=== PATIENT | female | born 1980 | race Caucasian/White ===

== ENCOUNTER 2017-03-26 08:06 | Inpatient (IN) | payer BC ==
[2017-03-26] VITALS (44 sets, daily range): BP systolic 107–152; BP diastolic 57–99; PULSE 54–97; RESP 17–18; TEMP 97.9–98.7
[~2017-03-26] VITALS: Ht 175.3 cm; Wt 78.0 kg
[2017-03-26] MEDS ORDERED: LACTATED RINGER'S 1000 ML INJ 1,000 ML IV PRN (08:17)
[2017-03-26] MEDS ORDERED: LACTATED RINGER'S 1000 ML INJ 1,000 ML IV SCH (08:17)
[2017-03-26] MEDS ORDERED: LIDOCAINE HCL 1% 50 ML VIAL I-DERMAL PRN (08:30)
[2017-03-26] MEDS ORDERED: MINERAL OIL 10 ML VIAL TOPICAL PRN (08:30)
[2017-03-26] MEDS ORDERED: OXYTOCIN 30 UNITS-500ML PREMIX 500 ML IV ONE (08:30)
[2017-03-26] MEDS ORDERED: OXYTOCIN 30 UNITS-500ML PREMIX 500 ML IV SCH ×2 (08:30→18:15)
[2017-03-26] MEDS ORDERED: LIDOCAINE HCL 1% 50 ML VIAL INFIL PRN (08:30)
[2017-03-26] MEDS ORDERED: SODIUM CHLORID 0.9% 500 ML INJ 500 ML IV PRN (08:30)
[2017-03-26] MEDS ORDERED: CITRIC ACID-SODIUM CITRATE LIQ 30 ML UDC PO SCH (08:30)
[2017-03-26] MEDS ORDERED: SODIUM CHLOR 0.9% 1000 ML INJ 1,000 ML IV PRN (08:37)
[2017-03-26 09:25] LABS: AUTOMATED NEUTROPHIL # 6.2 TH/MM3 (1.8-7.7); BASOPHIL % 0.2 % (0.0-2.0); EOSINOPHIL # 0.1 TH/MM3 (0-0.4); EOSINOPHIL % 1.3 % (0.0-4.0); HEMATOCRIT 37.7 % (35.0-46.0); HEMOGLOBIN 13.1 GM/DL (11.6-15.3); LYMPHOCYTE # 1.7 TH/MM3 (1.0-4.8); MEAN CELL VOLUME 92.7 FL (80.0-100.0); MEAN CORPUSCULAR HEMOGLOBIN 32.1 PG (27.0-34.0); MEAN CORPUSCULAR HGB CONC 34.6 % (32.0-36.0); MEAN PLATELET VOLUME 9.9 FL (7.0-11.0); MONO % 9.4 % (0.0-8.0); MONOCYTE # 0.8 TH/MM3 (0-0.9); NEUT % 70.1 % (16.0-70.0); PLATELET COUNT 171 TH/MM3 (150-450); RED BLOOD COUNT 4.06 MIL/MM3 (4.00-5.30); RED CELL DISTRIBUTION WIDTH 13.4 % (11.6-17.2); WHITE BLOOD COUNT 8.9 TH/MM3 (4.0-11.0)
[2017-03-26 10:21] LABS: BACTERIA, URINE OCC /hpf; BILIRUBIN, URINE NEG (NEG); BLOOD, URINE NEG (NEG); GLUCOSE,URINE NEG (NEG); KETONE, URINE NEG (NEG); MUCUS URINE FEW /lpf (OCC); NITRITE,URINE NEG (NEG); PH, URINE 6.5 (5.0-8.5); SQUAMOUS EPITHELIAL CELL URINE 2 /hpf (0-5); URINE COLOR LIGHT-YELLOW (YELLW/STRAW); URINE LEUKOCYTE ESTERASE TRACE (NEG)
[2017-03-26] MEDS ORDERED: fentaNYL 2MCG-BUPIV 0.125% INJ 100 ML ONE (10:25)
[2017-03-26] MEDS ORDERED: ePHEDrine/NS 25 MG/5 ML SYRINGE ONE (10:25)
[2017-03-26] MEDS ORDERED: fentaNYL 2MCG-BUPIV 0.125% 100 ML EPIDURAL SCH (11:25)
[2017-03-26] MEDS ORDERED: DO NOT ADMINISTER ANTICOAGULANTS PRN (11:25)
[2017-03-26] MEDS ORDERED: NO SYSTEM NARCOTICS PRN (11:25)
[2017-03-26] MEDS ORDERED: MEASLES, MUMPS, RUBELLA VACCINE 0.5 ML VIAL SQ ONE (16:00)
[2017-03-26] MEDS ORDERED: DIPHTH/TETANUS/ACEL PERTUSSIS (BOOSTER) 0.5 ML VIAL/PFS IM ONE (16:00)
[2017-03-26] MEDS ORDERED: ONDANSETRON HCL 4 MG/2 ML VIAL ONE (16:49)
--- NOTE | 2017-03-26 18:10 | PD.OB.DELI ---
Weeks gestation: 39 Gest age assessed date: Mar 26, 2017 Gest age assessed time: 09:00 Pt started active labor?: Yes Active labor start date: Mar 26, 2017 Active labor start time: 09:00 Medical induction of labor?: No Artificial rupture of membrane: Yes Anesthesia: Epidural Episiotomy: None Vaginal Delivery: Normal, Spontaneous, Presentation: Occiput anterior Nuchal Cord: None Delayed cord clamping (45 sec): Yes Infant: Female, Single Delivery date: Mar 26, 2017 Delivery time: 17:39 One Minute : 9 Five Minute : 9 Weight: 7# 10 oz Placenta: Spontaneous delivery, Intact, 3 vessel cord Laceration: Perineal laceration, 2 deg Repair: Chromic running Estimated blood loss: 300 Angus Geronimo MD Mar 26, 2017 18:10
[2017-03-26] MEDS ORDERED: oxyCODONE/ACETAMINOPHEN 5 MG/325 MG TAB PO PRN ×2 (18:15)
[2017-03-26] MEDS ORDERED: ALUMINUM/MAGNESIUM/SIMETH 30 ML CUP PO PRN (18:15)
[2017-03-26] MEDS ORDERED: SODIUM CHLORIDE 0.9% FLUSH 10 ML FLUSH IV FLUSH PRN (18:15)
[2017-03-26] MEDS ORDERED: ONDANSETRON ODT 4 MG TAB PO PRN (18:15)
--- NOTE | 2017-03-26 18:17 | HHI.HP ---
HPI Chief Complaint induction 39 weeks Date Seen: Mar 26, 2017 Time Seen: 09:00 Travel History International Travel<30 Days: No Contact w/Intl Traveler<30Days: No Known Affected Area: No History of Present Illness HPI 36 yo who is 39 2/7 weeks and induction 3 cm Weeks Gestation: 39 Para: 0 : 1 History Past Medical History Medical History: Denies Significant Hx Obstetric History Obstetric History Past Surgical History Narrative Surgical none Family History Family History: Social History Alcohol Use: No Tobacco Use: No Substance Abuse: No Allergies-Medications (Allergen,Severity, Reaction): Coded Allergies: No Known Allergies (Verified Allergy, Mild, 08/29/05) Review of Systems Except as stated in HPI: all other systems reviewed are Neg Physical Exam Vital Signs Date Time Temp Pulse Resp B/P (MAP) Pulse Ox O2 Delivery O2 Flow Rate FiO2 03/26/17 17:44 93 140/78 (98) 03/26/17 17:42 18 03/26/17 17:31 89 136/91 (106) 03/26/17 17:01 59 133/88 (103) 03/26/17 16:30 69 131/89 (103) 03/26/17 16:00 62 135/90 (105) 03/26/17 15:55 97.9 03/26/17 15:40 18 03/26/17 15:30 54 142/80 (100) 03/26/17 15:01 60 107/57 (74) 03/26/17 14:31 63 121/81 (94) 03/26/17 14:00 66 119/87 (98) 03/26/17 13:30 60 114/73 (87) 03/26/17 13:00 67 112/75 (87) 03/26/17 12:41 97.9 18 03/26/17 12:30 73 121/82 (95) 03/26/17 12:15 68 119/80 (93) 03/26/17 12:00 76 116/80 (92) 03/26/17 11:45 65 114/71 (85) 03/26/17 11:40 68 119/79 (92) 03/26/17 11:35 97 132/90 (104) 03/26/17 11:31 73 122/80 (94) 03/26/17 11:25 80 120/80 (93) 03/26/17 11:25 78 03/26/17 11:20 81 03/26/17 11:20 78 120/85 (97) 03/26/17 11:15 73 125/85 (98) 03/26/17 11:15 77 03/26/17 11:11 75 130/99 (109) 03/26/17 11:10 69 03/26/17 11:04 65 129/87 (101) 03/26/17 10:20 18 03/26/17 10:20 98.3 03/26/17 10:00 69 132/90 (104) 03/26/17 09:30 78 133/94 (107) 03/26/17 09:19 85 135/90 (105) 03/26/17 08:45 98.4 18 03/26/17 08:43 80 03/26/17 08:43 135/92 (106) Narrative GENERAL: Well-nourished, well-developed patient. SKIN: Warm and dry. HEAD: Normocephalic and atraumatic. EYES: No scleral icterus. No injection or drainage. ENT: No nasal drainage noted. Mucous membranes pink. Airway patent. NECK: Supple, trachea midline. No JVD. CARDIOVASCULAR: Regular rate and rhythm without murmurs, gallops, or rubs. RESPIRATORY: Breath sounds equal bilaterally. No accessory muscle use. BREASTS: Bilateral exam showed no masses , no retractions, no nipple discharge. ABDOMEN/GI: Abdomen soft, non-tender, bowel sounds present, no rebound, no guarding Gravid to 40 weeks size Fundal Height: [-] GENITOURINARY: External Genitalia: intact and normal in appearance BUS glands: [-] Cervix: Dilatation: 3 Effacement: 70 Station: [-] Presentation: [-] Membranes AROM Uterine Contractions: [-] FHT's: Category: 1 Baseline: [-] Reactive: [-] Variability: [-] Decels: [-] EXTREMITIES: No cyanosis or edema. BACK: Nontender without obvious deformity. No CVA tenderness. NEUROLOGICAL: Awake and alert. Motor and sensory grossly within normal limits. Five out of 5 muscle strength in all muscle groups. Normal speech. Caprini VTE Risk Assessment Caprini VTE Risk Assessment: No/Low Risk (score <= 1) Caprini Risk Assessment Model Point Value = 1 Point Value = 2 Point Value = 3 Point Value = 5 Age 41-60 Minor surgery BMI > 25 kg/m2 Swollen legs Varicose veins or History of unexplained or recurrent spontaneous Oral contraceptives or hormone replacement Sepsis (< 1 month) Serious lung disease, including pneumonia (< 1 month) Abnormal pulmonary function Acute myocardial infarction Congestive heart failure (< 1 month) History of inflammatory bowel disease Medical patient at bed rest Age 61-74 Arthroscopic surgery Major open surgery (> 45 min) Laparoscopic surgery (> 45 min) Malignancy Confined to bed (> 72 hours) Immobilizing plaster cast Central venous access Age >= 75 History of VTE Family history of VTE Factor V Leiden Prothrombin [id number] Lupus anticoagulant Anticardiolipin antibodies Elevated serum homocysteine Heparin-induced thrombocytopenia Other congenital or acquired thrombophilia Stroke (< 1 month) Elective arthroplasty Hip, pelvis, or leg fracture Acute spinal cord injury (< 1 month) Prophylaxis Regimen Total Risk Factor Score Risk Level Prophylaxis Regimen 0-1 Low Early ambulation 2 Moderate Order ONE of the following: *Sequential Compression Device (SCD) *Heparin 5000 units SQ BID 3-4 Higher Order ONE of the following medications: *Heparin 5000 units SQ TID *Enoxaparin/Lovenox 40 mg SQ daily (WT < 150 kg, CrCl > 30 mL/min) *Enoxaparin/Lovenox 30 mg SQ daily (WT < 150 kg, CrCl > 10-29 mL/min) *Enoxaparin/Lovenox 30 mg SQ BID (WT < 150 kg, CrCl > 30 mL/min) AND/OR *Sequential Compression Device (SCD) 5 or more Highest Order ONE of the following medications: *Heparin 5000 units SQ TID (Preferred with Epidurals) *Enoxaparin/Lovenox 40 mg SQ daily (WT < 150 kg, CrCl > 30 mL/min) *Enoxaparin/Lovenox 30 mg SQ daily (WT < 150 kg, CrCl > 10-29 mL/min) *Enoxaparin/Lovenox 30 mg SQ BID (WT < 150 kg, CrCl > 30 mL/min) AND *Sequential Compression Device (SCD) Data Data Vital Signs Reviewed: Yes Orders Orders Admit To Inpatient (03/26/17 ) Code Status (03/26/17 08:17) Vital Signs (Adult) .Per protocol (03/26/17 08:17) Heart (03/26/17 08:17) Amnioinfusion (03/26/17 08:17) Urinary Catheter Management .ONCE (03/26/17 08:17) Diet Liquid (03/26/17 Breakfast) Lactated Ringer's 1000 Ml Inj (Lr 1000 M (03/26/17 08:17) Lactated Ringer's 1000 Ml Inj (Lr 1000 M (03/26/17 08:17) Sodium Chlorid 0.9% 500 Ml Inj (Ns 500 M (03/26/17 08:30) Sodium Chlor 0.9% 1000 Ml Inj (Ns 1000 M (03/26/17 08:37) Lidocaine 1% Inj (50 Ml) (Xylocaine 1% I (03/26/17 08:30) Citric Acid-Sodium Citrate Liq (Bicitra (03/26/17 08:30) Fentanyl Inj (Fentanyl Inj) (03/26/17 08:30) Fentanyl Inj (Fentanyl Inj) (03/26/17 08:30) Complete Blood Count With Diff (03/26/17 08:17) Hold Clot (03/26/17 08:17) Abo/Rh Blood Type (03/26/17 08:17) Urinalysis - C+S If Indicated (03/26/17 08:17) Drug Screen, Random Urine (03/26/17 08:17) Resp Oxygen Non Rebreathe Mask (03/26/17 ) ^ Epidural / Intrathecal Infus (03/26/17 08:17) Oxytocin 30 Units-500ml Premix (Pitocin (03/26/17 08:30) Lidocaine 1% Inj (50 Ml) (Xylocaine 1% I (03/26/17 08:30) Light Mineral Oil (Muri-Lube Oil) (03/26/17 08:30) Inpatient Certification (03/26/17 ) Specimen To Be Collected PRN (03/26/17 08:17) Specimen To Be Collected PRN (03/26/17 08:17) ^ Non Stress Test (03/26/17 08:20) Response To Medication .Post New Med Administration, Reaction (03/26/17 08:20) ^ Discontinue Medication (03/26/17 08:20) Oxytocin 30 Units-500ml Premix (Pitocin (03/26/17 08:30) Influenza (Quad) Vaccine Inj (Flu (Quadr (03/27/17 10:00) Fentanyl 2mcg-Bupiv 0.125% Inj (Fentanyl (03/26/17 10:25) Ephedrine/Ns 25 Mg/5 Ml Syr (Ephedrine/N (03/26/17 10:25) ^ Place On Chart (03/26/17 ) ^ Medication Indications (03/26/17 ) Consent (03/26/17 ) ^ No Systemic Narcotics (03/26/17 ) ^ Call Anesthesiologist (03/26/17 ) ^ Discontinue Epidural Cathete (03/26/17 ) Anticoagulant Alert (03/26/17 ) ^ Epidural Alert (03/26/17 ) Ondansetron Inj (Zofran Inj) (03/26/17 16:49) Vital Signs (Adult) .QSHIFT (03/26/17 18:05) Activity Oob Ad Lisseth (03/26/17 18:05) Ice / Cold Pack PRN (03/26/17 18:05) Discontinue Iv (03/26/17 18:05) Sitz Bath PRN (03/26/17 18:05) ^ Massage (03/26/17 18:05) ^ Rhogam (03/26/17 18:05) Urinary Catheter Management .PRN (03/26/17 18:05) Diet Regular Basic (03/26/17 Dinner) Sodium Chloride 0.9% Flush (Ns Flush) (03/26/17 21:00) Sodium Chloride 0.9% Flush (Ns Flush) (03/26/17 18:15) Oxytocin 30 Units-500ml Premix (Pitocin (03/26/17 18:15) Acetaminophen (Tylenol) (03/26/17 18:15) Ibuprofen (Motrin) (03/26/17 18:15) Oxycodone-Acetamin 5-325 Mg (Percocet (03/26/17 18:15) Oxycodone-Acetamin 5-325 Mg (Percocet (03/26/17 18:15) Benzocaine 20% Top Spr (Americaine 20% T (03/26/17 18:15) Witch Justine-Glycerin Pad (Tucks Pads) (03/26/17 18:15) Docusate Sodium-Senna (Marilyn-Colace) (03/26/17 18:15) Zolpidem (Ambien) (03/26/17 18:15) Mikgtjp-Xpmda-Mwtuhle Inj (M-M-R Ii Inj) (03/26/17 16:00) Gcxq-Hbq-Sriykv (Booster) Inj (Boostrix (03/26/17 16:00) Al-Mag Hy-Si 40-40-4 Mg/Ml Liq (Mag-Al P (03/26/17 18:15) Ondansetron Odt (Zofran Odt) (03/26/17 18:15) Group B Strep: Negative Labs Laboratory Tests Test 03/26/17 08:35 03/26/17 09:15 White Blood Count 8.9 Red Blood Count 4.06 Hemoglobin 13.1 Hematocrit 37.7 Mean Corpuscular Volume 92.7 Mean Corpuscular Hemoglobin 32.1 Mean Corpuscular Hemoglobin Concent 34.6 Red Cell Distribution Width 13.4 Platelet Count 171 Mean Platelet Volume 9.9 Neutrophils (%) (Auto) 70.1 Lymphocytes (%) (Auto) 19.0 Monocytes (%) (Auto) 9.4 Eosinophils (%) (Auto) 1.3 Basophils (%) (Auto) 0.2 Neutrophils # (Auto) 6.2 Lymphocytes # (Auto) 1.7 Monocytes # (Auto) 0.8 Eosinophils # (Auto) 0.1 Basophils # (Auto) 0.0 CBC Comment DIFF FINAL Differential Comment Urine Color LIGHT-YELLOW Urine Turbidity CLEAR Urine pH 6.5 Urine Specific [place] 1.011 Urine Protein NEG Urine Glucose (UA) NEG Urine Ketones NEG Urine Occult Blood NEG Urine Nitrite NEG Urine Bilirubin NEG Urine Urobilinogen LESS THAN 2.0 Urine Leukocyte Esterase TRACE Urine RBC 1 Urine WBC 1 Urine Squamous Epithelial Cells 2 Urine Bacteria OCC Urine Mucus FEW Microscopic Urinalysis Comment CULT NOT INDICATED Urine Opiates Screen NEG Urine Barbiturates Screen NEG Urine Amphetamines Screen NEG Urine Benzodiazepines Screen NEG Urine Cocaine Screen NEG Urine Cannabinoids Screen NEG Assessment/Plan Problem List: (1) 39 weeks gestation of ICD Codes: Z3A.39 - 39 weeks gestation of Assessment and Plan Induction Angus Geronimo MD Mar 26, 2017 18:16
[2017-03-26] MEDS ORDERED: ONDANSETRON HCL 4 MG/2 ML VIAL IV PUSH PRN (18:30)
[2017-03-26] MEDS: IBUPROFEN 800 MG TAB PO PRN (18:39)
[2017-03-26] MEDS: WITCH HAZEL 50%/GLYCERIN 12.5% 40 PAD JAR TOPICAL PRN (20:35)
[2017-03-26] MEDS: BENZOCAINE 20% TOPICAL SPRAY 60 ML CAN TOPICAL PRN (20:35)
[2017-03-26] MEDS: DOCUSATE SODIUM 50 MG/SENNA 8.6 MG TAB PO PRN (20:36)
[2017-03-26] MEDS ORDERED: ZOLPIDEM TARTRATE 5 MG TAB PO PRN (21:00)
[2017-03-26] MEDS ORDERED: SODIUM CHLORIDE 0.9% FLUSH 10 ML FLUSH IV FLUSH SCH (21:00)
[2017-03-26] MEDS ORDERED: ePHEDrine/NS 25 MG/5 ML SYRINGE IV PUSH PRN (22:45)
[2017-03-27 08:00] VITALS: BP 117/75; PULSE 86; RESP 14; TEMP 97.9
--- NOTE | 2017-03-27 08:15 | HHI.OB ---
Subjective Post Day: 1 Remarks doing well Objective Vitals/I&O Vital Signs Date Time Temp Pulse Resp B/P (MAP) Pulse Ox O2 Delivery O2 Flow Rate FiO2 03/26/17 20:10 75 18 03/26/17 20:10 98.3 03/26/17 20:10 113/69 (84) 03/26/17 19:16 74 127/72 (90) 03/26/17 19:01 83 127/89 (102) 03/26/17 18:55 18 03/26/17 18:45 80 132/82 (99) 03/26/17 18:33 98.7 18 03/26/17 18:31 80 135/81 (99) 03/26/17 18:15 17 03/26/17 18:01 94 152/59 (90) 03/26/17 18:00 18 03/26/17 17:44 93 140/78 (98) 03/26/17 17:42 18 03/26/17 17:31 89 136/91 (106) 03/26/17 17:01 59 133/88 (103) 03/26/17 16:30 69 131/89 (103) 03/26/17 16:00 62 135/90 (105) 03/26/17 15:55 97.9 03/26/17 15:40 18 03/26/17 15:30 54 142/80 (100) 03/26/17 15:01 60 107/57 (74) 03/26/17 14:31 63 121/81 (94) 03/26/17 14:00 66 119/87 (98) 03/26/17 13:30 60 114/73 (87) 03/26/17 13:00 67 112/75 (87) 03/26/17 12:41 97.9 18 03/26/17 12:30 73 121/82 (95) 03/26/17 12:15 68 119/80 (93) 03/26/17 12:00 76 116/80 (92) 03/26/17 11:45 65 114/71 (85) 03/26/17 11:40 68 119/79 (92) 03/26/17 11:35 97 132/90 (104) 03/26/17 11:31 73 122/80 (94) 03/26/17 11:25 80 120/80 (93) 03/26/17 11:25 78 03/26/17 11:20 81 03/26/17 11:20 78 120/85 (97) 03/26/17 11:15 73 125/85 (98) 03/26/17 11:15 77 03/26/17 11:11 75 130/99 (109) 03/26/17 11:10 69 03/26/17 11:04 65 129/87 (101) 03/26/17 10:25 18 03/26/17 10:20 18 03/26/17 10:20 98.3 03/26/17 10:00 69 132/90 (104) 03/26/17 09:30 78 133/94 (107) 03/26/17 09:19 85 135/90 (105) 03/26/17 08:45 98.4 18 03/26/17 08:43 80 03/26/17 08:43 135/92 (106) Objective Remarks GENERAL: Well-nourished, well-developed patient. ABDOMEN/GI: Abdomen soft, non-tender. Fundus: Firm, non-tender at umbilicus. GENITOURINARY: Light to moderate bleeding. EXTREMITIES: No cyanosis or edema, non-tender, without signs of DVT. Medications and IVs Current Medications Medications (Trade) Dose Ordered Sig/Lashonda Route Start Time Stop Time Status Last Admin (NS Flush) 2 ml BID IV FLUSH 03/26/17 21:00 (NS Flush) 2 ml UNSCH PRN IV FLUSH 03/26/17 18:15 (Tylenol) 650 mg Q4H PRN PO 03/26/17 18:15 (Motrin) 800 mg Q8H PRN PO 03/26/17 18:15 03/26/17 18:39 (Percocet 5-325 Mg) 1 tab Q4H PRN PO 03/26/17 18:15 (Percocet 5-325 Mg) 2 tab Q4H PRN PO 03/26/17 18:15 (Americaine 20% Top Spr) 1 spray Q4H PRN TOPICAL 03/26/17 18:15 03/26/17 20:35 (Tucks Pads) 1 applic QID PRN TOPICAL 03/26/17 18:15 03/26/17 20:35 (Marilyn-Colace) 2 tab Q12H PRN PO 03/26/17 18:15 03/26/17 20:36 (Ambien) 5 mg HS PRN PO 03/26/17 21:00 (Mag-Al Plus Susp Liq) 15 ml Q8H PRN PO 03/26/17 18:15 (Zofran Odt) 4 mg Q6H PRN PO 03/26/17 18:15 (Zofran Inj) 4 mg Q8HR PRN IV PUSH 03/26/17 18:30 03/26/17 16:53 Miscellaneous Information No systemic narcotics to be given except... UNSCH PRN .XX 03/26/17 11:25 03/27/17 11:24 Miscellaneous Information DO NOT ADMINISTER ANY ANTICOAGUL... UNSCH PRN .XX 03/26/17 11:25 03/27/17 11:24 Fentanyl/ Bupivacaine HCl 100 ml @ 0 mls/hr TITRATE EPIDURAL 03/26/17 11:25 (ePHEDrine/NS 25 MG/5 ML SYR) 10 mg UNSCH PRN IV PUSH 03/26/17 22:45 03/27/17 22:44 Assessment/Plan Problem List: (1) 39 weeks gestation of ICD Codes: Z3A.39 - 39 weeks gestation of Assessment and Plan Induction Angus Geronimo MD Mar 27, 2017 08:15
--- NOTE | 2017-03-27 08:18 | HHI.DCPOC ---
Discharge Care Plan Diagnosis: (1) Spontaneous vaginal delivery Report Symptoms to Your Doctor -Temperature above 100.5 degrees -Redness, of incision or excessive or foul smelling drainage -Unusual pain or calf pain -Increased vaginal bleeding -Painful or difficulty urinating -Feelings of extreme sadness or anxiety after 2 weeks Goals to Promote Your Health * To prevent worsening of your condition and complications * To maintain your health at the optimal level Directions to Meet Your Goals Take your medications as prescribed Follow your dietary instruction Follow activity as directed Ensure plenty of rest for recovery Drink fluids for hydration Keep your appointments as scheduled Take your immunizations and boosters as scheduled If your symptoms worsen call your PCP, if no PCP go to Urgent Care Center or Emergency Room Smoking is Dangerous to Your Health. Avoid second hand smoke Call the 24-hour crisis hotline for domestic abuse at Angus Geronimo MD Mar 27, 2017 08:18
[2017-03-27] MEDS: IBUPROFEN 800 MG TAB PO PRN ×2 (08:43→16:16)
[2017-03-27] MEDS: ACETAMINOPHEN 325 MG TAB PO PRN ×2 (08:43→16:16)
[2017-03-27] MEDS ORDERED: INFLUENZA VIRUS VACCINE (QUADRIVALENT) 0.5 ML SYR IM ONE (10:00)
[2017-03-27] MEDS: DOCUSATE SODIUM 50 MG/SENNA 8.6 MG TAB PO PRN (16:16)
[2017-03-27 20:00] VITALS: BP 130/84; PULSE 83; RESP 18; TEMP 98.3
[2017-03-28] MEDS ORDERED: INFLUENZA VIRUS VACCINE (QUADRIVALENT) 0.5 ML SYR IM ONE (04:30)
[2017-03-28] MEDS ORDERED: DIPHTH/TETANUS/ACEL PERTUSSIS (BOOSTER) 0.5 ML VIAL/PFS IM ONE (04:30)
[2017-03-28 08:00] VITALS: BP 121/81; PULSE 78; RESP 18; TEMP 98.3
--- NOTE | 2017-03-28 08:11 | HHI.OB ---
Subjective Post Day: 2 Remarks doing well Objective Vitals/I&O Vital Signs Date Time Temp Pulse Resp B/P (MAP) Pulse Ox O2 Delivery O2 Flow Rate FiO2 03/27/17 20:00 98.3 83 18 130/84 (99) Objective Remarks GENERAL: Well-nourished, well-developed patient. ABDOMEN/GI: Abdomen soft, non-tender. Fundus: Firm, non-tender at umbilicus. GENITOURINARY: Light to moderate bleeding. EXTREMITIES: No cyanosis or edema, non-tender, without signs of DVT. Medications and IVs Current Medications Medications (Trade) Dose Ordered Sig/Lashonda Route Start Time Stop Time Status Last Admin (NS Flush) 2 ml BID IV FLUSH 03/26/17 21:00 (NS Flush) 2 ml UNSCH PRN IV FLUSH 03/26/17 18:15 (Tylenol) 650 mg Q4H PRN PO 03/26/17 18:15 03/27/17 16:16 (Motrin) 800 mg Q8H PRN PO 03/26/17 18:15 03/27/17 16:16 (Percocet 5-325 Mg) 1 tab Q4H PRN PO 03/26/17 18:15 03/27/17 22:51 (Percocet 5-325 Mg) 2 tab Q4H PRN PO 03/26/17 18:15 (Americaine 20% Top Spr) 1 spray Q4H PRN TOPICAL 03/26/17 18:15 03/26/17 20:35 (Tucks Pads) 1 applic QID PRN TOPICAL 03/26/17 18:15 03/26/17 20:35 (Marilyn-Colace) 2 tab Q12H PRN PO 03/26/17 18:15 03/27/17 16:16 (Ambien) 5 mg HS PRN PO 03/26/17 21:00 (Mag-Al Plus Susp Liq) 15 ml Q8H PRN PO 03/26/17 18:15 (Zofran Odt) 4 mg Q6H PRN PO 03/26/17 18:15 (Zofran Inj) 4 mg Q8HR PRN IV PUSH 03/26/17 18:30 03/26/17 16:53 Fentanyl/ Bupivacaine HCl 100 ml @ 0 mls/hr TITRATE EPIDURAL 03/26/17 11:25 Assessment/Plan Problem List: (1) 39 weeks gestation of ICD Codes: Z3A.39 - 39 weeks gestation of (2) Spontaneous vaginal delivery ICD Codes: O80 - Encounter for full-term uncomplicated delivery Assessment and Plan [facility] [place] Angus Geronimo MD Mar 28, 2017 08:11
[2017-03-28] MEDS ORDERED: OXYC1TAB63 PO (08:13)
--- NOTE | 2017-03-28 08:17 | HHI.DS ---
Admission Date Mar 26, 2017 at 08:06 Discharge Date: Mar 28, 2017 Admitting Diagnosis Diagnosis: (1) Spontaneous vaginal delivery Diagnosis: Principal ICD Codes: O80 - Encounter for full-term uncomplicated delivery Delivery Date: Mar 26, 2017 Vaginal Delivery: Normal, Spontaneous : Female, Single Brief History 36 yo who is 39 2/7 weeks and induction 3 cm Hospital Course 36 yo S/P doing well Pt Condition on Discharge: Good Discharge Disposition: Discharge Home Discharge Instructions Diet Instructions: As Tolerated, No Restrictions Activities You Can Perform: Pelvic Rest Activities to Avoid: Driving for 24 hrs Follow up Referrals: [facility] - 2 Weeks @ [facility] with Angus Geronimo MD New Medications: Oxycodone HCl/Acetaminophen (Oxycodone-Acetaminophen 5-325) 5 Mg-325 Mg Tablet 2 TAB PO Q4H PRN for PAIN SCALE 6 TO 10, #20 TAB 0 Refills Angus Geronimo MD Mar 28, 2017 08:17
[2017-03-28] MEDS: BENZOCAINE 20% TOPICAL SPRAY 60 ML CAN TOPICAL PRN (09:41)
[2017-03-28] MEDS: WITCH HAZEL 50%/GLYCERIN 12.5% 40 PAD JAR TOPICAL PRN (09:41)
[2017-03-28] MEDS: IBUPROFEN 800 MG TAB PO PRN (09:41)
[2017-03-28] MEDS: ACETAMINOPHEN 325 MG TAB PO PRN (09:42)
== END 2017-03-28 16:18 | disposition home or self-care (01) | DRG 775 ==
LOC: H2EB 08:06 → H1EA 19:45
PROVIDERS: ADMIT Obstetrics & Gynecology; ATTEND Obstetrics & Gynecology
PROC: 10E0XZZ Delivery of Products of Conception, External Approach (ICD-10-PCS; principal; 2017-03-26)
PROC: 0KQM0ZZ Repair Perineum Muscle, Open Approach (ICD-10-PCS; 2017-03-26)
PROC: 3E033VJ Introduction of Other Hormone into Peripheral Vein, Percutaneous Approach (ICD-10-PCS; 2017-03-26)
PROC: 10907ZC Drainage of Amniotic Fluid, Therapeutic from Products of Conception, Via Natural or Artificial Opening (ICD-10-PCS; 2017-03-26)
DX: O70.1 Second degree perineal laceration during delivery (principal); Z37.0 Single live birth; Z3A.39 39 weeks gestation of pregnancy; Z23 Encounter for immunization
CPT/HCPCS: 59025; 80307; 81001; 85025; 86900; 86901; 90686; 90715; J2405; J2590; J7120; Q2038